=== PATIENT | female | born 1990 | race Caucasian/White ===

== ENCOUNTER → 2023-08-06 | Outpatient (CLI) | payer BC ==
[2023-08-06 10:38] LABS: BASO # 0.03 K/mm3 (0.02-0.10); EOS # 0.16 K/mm3 (0.04-0.40); EOS % 1.5 % (1.0-5.0); HEMATOCRIT 41.4 % (37.0-47.0); HEMOGLOBIN 13.7 g/dL (12.5-16.0); LYMPH# 3.03 K/mm3 (1.50-4.00); MEAN CELL VOLUME 88 fl (78-100); MEAN CORPUSCULAR HEMOGLOBIN 29 pg (27-31); MEAN CORPUSCULAR HGB CONC 33 g/dL (33-37); MEAN PLATELET VOLUME 10.4 fl (7.4-10.4); MONO # 0.66 K/mm3 (0.20-0.80); NEU # 6.69 K/mm3 (1.40-6.50); PLATELET COUNT 261 K/mm3 (130-400); RED BLOOD COUNT 4.72 M/mm3 (4.10-5.30); RED CELL DISTRIBUTION WIDTH 12.4 % (11.5-14.5); WHITE BLOOD COUNT 10.6 K/mm3 (4.8-10.8)
[2023-08-06 10:48] LABS: POTASSIUM 3.7 mmol/L (3.5-5.1)
[2023-08-06 10:49] LABS: CALCIUM 9.1 mg/dL (8.3-10.5)
[2023-08-06 10:50] LABS: TOTAL PROTEIN 6.6 g/dL (6.4-8.3)
[2023-08-06 10:52] LABS: TOTAL BILIRUBIN 0.6 mg/dL (0.2-1.2)
== END ==
LOC: LAB 10:18
PROVIDERS: Nurse Practitioner
DX: Z00.00 Encounter for general adult medical examination without abnormal findings (principal); Z12.39 Encounter for other screening for malignant neoplasm of breast; R92.8 Other abnormal and inconclusive findings on diagnostic imaging of breast; F41.1 Generalized anxiety disorder; D50.9 Iron deficiency anemia, unspecified; R53.83 Other fatigue; F32.A Depression, unspecified

== ENCOUNTER → 2024-01-27 | Outpatient (CLI) | payer BC | LOC: LAB 16:15 | DX: J06.9 Acute upper respiratory infection, unspecified (principal) ==

== ENCOUNTER → 2024-05-13 | Outpatient (CLI) | payer BC | LOC: LAB 17:14 | DX: E55.9 Vitamin D deficiency, unspecified (principal); R53.83 Other fatigue ==

== ENCOUNTER → 2024-05-28 | Outpatient (CLI) | payer BC | LOC: RAD 08:46 | DX: N94.0 Mittelschmerz (principal) ==

== ENCOUNTER → 2024-09-23 | Outpatient (CLI) | payer BC | LOC: LAB 18:04 | DX: Z32.01 Encounter for pregnancy test, result positive (principal) ==